=== PATIENT | male | born 1935 | race Caucasian/White ===

== ENCOUNTER 2017-03-07 14:09 | Emergency (ER) | payer OTHER ==
[~2017-03-07] VITALS: Ht 188 cm; Wt 129.4 kg
[2017-03-07 14:19] VITALS: BP 128/61; PULSE 100; RESP 18; TEMP 97.8; O2SAT 98
[2017-03-07] MEDS ORDERED: ASPI81TA23 PO (15:39)
[2017-03-07 15:40] VITALS: BP 176/82; PULSE 98; RESP 18; O2SAT 98
--- NOTE | 2017-03-07 15:48 | PD ---
HPI Chief Complaint: Skin Problem Time Seen by Provider: 15:36 Travel History International Travel<30 days: No Contact w/Intl Traveler<30days: No Traveled to known affect area: No History of Present Illness HPI This patient complains of left lower leg pain. 6 days ago he hit it against a trailer hitch. He's had pain since then. He has pain with weightbearing. He is ambulating however. He also is worried about infection starting at a skin biopsy site he had recently. He has history of squamous cell skin cancer and is following up with oncology for treatment. Pain is mild to moderate in severity. PFSH Past Medical History Hx Anticoagulant Therapy: Yes (ASA 81MG DAILY) Cancer: Yes (SKIN) Diabetes: Yes Patient Takes Glucophage: No Diminished Hearing: No Integumentary: Yes Immunizations Current: Yes Tetanus Vaccination: < 5 Years Influenza Vaccination: Yes Past Surgical History Other Surgery: Yes (SKIN NODULE) Social History Alcohol Use: No Tobacco Use: No Substance Use: No Allergies-Medications (Allergen,Severity, Reaction): Coded Allergies: No Known Allergies (Verified Allergy, Unknown, 03/07/17) Reported Meds & Prescriptions Reported Meds & Active Scripts Active Reported Aspirin EC (Aspirin) 81 Mg Tabdr 81 Mg PO DAILY Review of Systems General / Constitutional: No: Fever HENT: No: Headaches Cardiovascular: No: Chest Pain or Discomfort Respiratory: No: Cough Physical Exam Narrative Left leg: There is some mild tenderness in the anterior surface of the distal left tibia. No bruising or swelling. Farther proximal up the tibia is a scabbed over skin biopsy site with some mild macular erythema around it. No fluctuance or drainage. Psych: Normal mood and affect. Normal insight and judgment. GASTROINTESTINAL: Abdomen soft, non-tender, nondistended. Positive bowel sounds. No hepato-splenomegaly, or palpable masses. No guarding. Data Data Last Documented VS Vital Signs Date Time Temp Pulse Resp B/P (MAP) Pulse Ox O2 Delivery O2 Flow Rate FiO2 03/07/17 15:40 98 18 176/82 (113) 98 Room Air 03/07/17 14:19 97.8 Orders Orders Tibia/Fibula (Ap/Lat) (03/07/17 ) MDM Medical Decision Making Medical Screen Exam Complete: Yes Emergency Medical Condition: Yes Medical Record Reviewed: Yes Differential Diagnosis Tibia fracture, tibia contusion, skin infection Narrative Course I have reviewed the patient's electronic medical record. I reviewed his left tibia x-rays which are normal I wrote him 5 days of Bactrim for very minor possible wound infection Stable for outpatient follow-up Diagnosis Primary Impression: Contusion of left tibia Additional Impression: Wound infection following procedure Additional Instructions: The patient was advised to follow up with their physician and return if they worsen. Med/Other Pt SpecificInfo: Prescription(s) given Scripts Sulfamethoxazole-Trimethoprim (Bactrim DS) 800-160 Mg Tab 1 TAB PO BID for Infection, #10 TAB 0 Refills Prov: Derrick Pena MD 03/07/17 Disposition: 01 DISCHARGE HOME Condition: Stable Derrick Pena MD Mar 07, 2017 15:48
--- NOTE | 2017-03-07 16:11 | RADRPT ---
EXAM DATE/TIME: 03/07/2017 15:55 [facility] COMPARISON: No previous studies available for comparison. INDICATIONS : Left distal tibia/fibula pain post running into [employer]. MEDICAL HISTORY : None. SURGICAL HISTORY : None. ENCOUNTER: Initial ACUITY: 1 week PAIN SCORE: 7/10 LOCATION: Left tibia/fibula FINDINGS: Two view examination of the left tibia demonstrates no evidence of fracture or dislocation. Bony min eralization is normal. The soft tissue structures are intact. There are vascular calcifications in t he soft tissues. CONCLUSION: No acute fracture or joint dislocation. Mansoor Aguilar MD on March 07, 2017 at 16:09 Board Certified Radiologist. This report was verified electronically.
[2017-03-07] MEDS ORDERED: BACT800T5 PO (17:09)
[2017-03-07 17:29] VITALS: BP 167/70
== END 2017-03-07 17:30 | disposition home or self-care (01) ==
LOC: PHED 14:09
DX: S80.12XA Contusion of left lower leg, initial encounter (principal); T81.4XXA Infection following a procedure, initial encounter; E11.9 Type 2 diabetes mellitus without complications; W22.8XXA Striking against or struck by other objects, initial encounter; Z79.82 Long term (current) use of aspirin
CPT/HCPCS: 73590; 99283